=== PATIENT | male | born 1970 | race Caucasian/White ===

== ENCOUNTER → 2017-12-17 | Outpatient (CLI) | payer OTHER | LOC: BMCIMAGING 10:10 | PROVIDERS: ATTEND Family Medicine | DX: J98.4 Other disorders of lung (principal) ==

== ENCOUNTER 2018-03-25 13:52 | Inpatient (IN) | payer OTHER ==
[2018-03-25] MEDS ORDERED: HYDROmorphONE/DILAUDID 2 MG/ML INJ IVP ONE (14:15)
[2018-03-25] MEDS ORDERED: NS 1,000 ML IV ONE (14:15)
[2018-03-25] MEDS ORDERED: ONDANSETRON 4 MG/2 ML VIAL IVP ONE (14:15)
[2018-03-25] MEDS ORDERED: ONDANSETRON 4 MG/2 ML VIAL ONE (14:15)
[2018-03-25] MEDS ORDERED: HYDROmorphONE/DILAUDID 1 MG/ML INJ ONE (14:16)
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
[2018-03-25] MEDS ORDERED: IOPAMIDOL (ISOVUE-300) 100 ML BTL ONE (14:30)
[2018-03-25 14:33] LABS: PLATELET COUNT 274 10^3/uL (150-400)
[2018-03-25] MEDS ORDERED: HYDROmorphONE/DILAUDID 1 MG/ML INJ IVP ONE (15:06)
[2018-03-25] MEDS ORDERED: KETAMINE 200 MG/20 ML VIAL IVP ONE (16:11)
[2018-03-25] MEDS: HYDROmorphONE/DILAUDID 1 MG/ML INJ IVP ONE ×2 (16:15→17:44)
[2018-03-25] MEDS ORDERED: LR 1,000 ML IV SCH (16:30)
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
[2018-03-25] MEDS: HYDROCODONE/APAP 5/325 TAB PO PRN (18:20)
[2018-03-25] MEDS: HYDROmorphONE/DILAUDID 1 MG/ML INJ IVP PRN ×2 (18:21→21:25)
[2018-03-25] MEDS: DIAZEPAM 5 MG TAB PO PRN (19:21)
[2018-03-25] MEDS: IBUPROFEN 600 MG TAB PO SCH (21:26)
[2018-03-26] MEDS: HYDROmorphONE/DILAUDID 1 MG/ML INJ IVP PRN (01:30)
[2018-03-26] MEDS: IBUPROFEN 600 MG TAB PO SCH ×3 (05:27→22:11)
[2018-03-26] MEDS: HYDROCODONE/APAP 5/325 TAB PO PRN ×3 (05:29→18:20)
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
[2018-03-26] MEDS: DIAZEPAM 5 MG TAB PO PRN (22:10)
[2018-03-27] MEDS: HYDROCODONE/APAP 5/325 TAB PO PRN ×2 (04:09→09:33)
[2018-03-27] MEDS: IBUPROFEN 600 MG TAB PO SCH (05:07)
[2018-03-27 08:00] VITALS: BP 114/73
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
== END 2018-03-27 13:00 | disposition home or self-care (01) | DRG 185 ==
LOC: F2W 15:43 → F3N 17:33
PROVIDERS: ADMIT Surgery; ATTEND Surgery
DX: S22.41XA Multiple fractures of ribs, right side, initial encounter for closed fracture (principal); S42.001A Fracture of unspecified part of right clavicle, initial encounter for closed fracture; S42.114A Nondisplaced fracture of body of scapula, right shoulder, initial encounter for closed fracture; V18.0XXA Pedal cycle driver injured in noncollision transport accident in nontraffic accident, initial encounter; Y93.55 Activity, bike riding; R91.8 Other nonspecific abnormal finding of lung field
CPT/HCPCS: 82435-PO; 82565-PO; 82947-PO; 84132-PO; 84295-PO; 84520-PO; 85014-PO; 96374; 97110-GP; 97116-GP; 97161-GP; 97166-GO; 97535-GO; J1170; J2405; Q9967